=== PATIENT | female | born 1960 | race Caucasian/White ===

== ENCOUNTER 2018-06-28 07:27 | Emergency (ER) | payer OTHER ==
--- OUTSIDE RECORDS SUMMARY | 2018-06-28 07:33 | XMS REPORT | Continuity of Care Document ---
:1960 External Reference #:[id number] Author Name Fran Masterson MD Address [address] [place] [id number] Care Team Providers Name Role Phone Kush Masterson NP Care Team Information [employer] Unavailable Payers Type Date Identification Numbers Payment Provider Subscriber Effective: Policy Number: Lifetime Benefit Artemio Penaloza [place] 2013 [id number] SLNS Group Number: [id number] [address] [address] PayID: [place] [address] Expires: 2013 Policy Number: [id number] Ebs [employer] Artemio Penaloza [place] Group Number: [id number] [address] PayID: [place] [address] Advance Directives Description No Information Available Problems Date Description Provider Status Onset: 07/04/2004 Excessive and frequent menstruation Kristin Coates MD Active Onset: 08/01/2004 Adult health examination Kristin Coates MD Active Onset: 08/01/2004 Cyst of ovary Kristin Coates MD Active Onset: 08/01/2004 Atopic dermatitis Kristin Coates MD Active Onset: 10/22/2010 Pure hypercholesterolemia Kristin Coates MD Active Onset: 10/22/2010 Gynecologic examination Kristin Coates MD Active Onset: 05/08/2009 Prophylactic immunotherapy Kristin Coates MD Active Onset: 05/08/2009 Removal of suture Kristin Coates MD Active Family History Date Family Member(s) Problem(s) Comments Father due to Melanoma () Father Hypertension Mother due to Carcinoid Tumors () Mother Carcinoid Tumors; No H/O Ut/Cerv/Ov/ CA Mother Valve Replacement, Aortic Stenosis Siblings 2 Paternal Grandmother Diabetes, Adult Social History Type Date Description Comments Sex Unknown Education Higest level completed, Bachelor's Degree Marital Status Lives With Spouse Lives With Son Lives With Daughter Diet Healthy, Well Balanced Smoke-Free Smoke-Free Home Yes Pets 1 dog 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 Hand Dominance RIGHT-handed Hobbies Hobbies include Hiking, Skiing, Gardening, Geneology Tobacco Use Start: Unknown Never Smoked Cigarettes ETOH Use alcohol use: never used Exercise Type/Frequency Skiing, Active; Hockey Sun Exposure minimum amount of sun exposure Sun Exposure History of sunburns prior to age 19 Sun Exposure Has experienced blistering from sunburns Sun Exposure Uses 15-30 SPF Seat Belt/Car Seat always Allergies, Adverse Reactions, Alerts Description No Known Drug Allergies Medications Medication Date Status Form Strength Qnty SIG Indications Ordering Provider Guaiatussin ac 06/25 Active Syrup 100-10mg/ 118ml 5-10 5ML milliliters MD Fran every 4 hours as needed Shingrix 03/30 Active Suspension 50mcg 1unit as directed Rec s DELMER Lerner Simvastatin 02/06 Active Tablets 10mg 90tab 1 by mouth s every day DELMER Lerner No Active 03/24 Hx Unknown Medications /2016 - 02/06 Guaifenesin ac 05/03 Hx Syrup 100-10mg/ 120ml 1 teaspoon J02.9 5ML every 4 hours Kush, - as needed for ANTIQUE REFINISHER 03/24 Zostavax 03/18 Hx Solution [id number] 1vial 1 dose Rec 0.65ML intramuscular Kush, - ANTIQUE REFINISHER 05/03 Amoxicillin 11/16 Hx Tablets 875mg 20tab 1 by mouth J02.9 Christopher s twice a day Kush, - ANTIQUE REFINISHER 03/24 Out Of Work 11/16 Hx Misc today and J02.9 Aleja tomorrow MD Fran - 03/24 Tamiflu 08/01 Hx Capsules 75mg 10cap 1 by mouth Jaxon s once a day MD Kristin - until gone 05/03 Metronidazole 10/27 Hx Gel 0.75% 70gm 1 Vaginal applicatorful MD Kristin - intravaginall 05/03 y qhs x 5d Vitamin D 10/22 Hx Capsules 2000Unit 1 po qd MD Kristin - 03/24 24H Urine For 08/01 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 MD Kristin - tumors 10/22 Provera 07/04 Hx Tablets 10mg 10tab 1 po qd until 626.2 Jaxon s bleeding MD Kristin - stops 08/01 Immunizations CPT Code Status Date Vaccine Lot # [id number] Given 03/30/2018 Influenza Vac, Quadrivalent, Split, 0.5mL Dosage, [id number] Im Use 20499 Given 03/24/2017 Influenza Vac, Quadrivalent, Split, 0.5mL Dosage, [id number] Im Use 29354 Given 03/18/2016 Influenza Vac, Quadrivalent, Split, 0.5mL Dosage, [id number] Im Use 88083 Given 05/08/2009 Administration Swine Flu Vaccine [id number] Given 04/28/2009 Tdap (Adacel) Ages 7 And Above Only 48073 Given 05/04/2007 Afluria Or Fluvirin Flu Vac Intramuscular [id number] Vital Signs Date Vital Result Comment 06/25/2018 3:12pm Body Temperature 98.1 F Weight 231.00 lb Heart Rate 90 /min BP Systolic 128 mmHg BP Diastolic 70 mmHg Respiratory Rate 18 /min Height 63.25 inches 5'3.25" BMI (Body Mass Index) 40.6 kg/m2 03/30/2018 9:56am Body Temperature 97.5 F Weight 228.00 lb Heart Rate 86 /min BP Systolic 136 mmHg BP Diastolic 80 mmHg Respiratory Rate 17 /min Height 63 inches 5'3" BMI (Body Mass Index) 40.4 kg/m2 Urine Dipstick - Blood pos Urine Dipstick - Protein neg Urine Dipstick - Glucose neg Urine Dipstick - Leukocytes trace Left ear audiology results wnl Right ear audiology results neg 4000hz 03/24/2017 12:32pm Weight 228.00 lb Heart Rate 88 /min BP Systolic 128 mmHg BP Diastolic 80 mmHg Height 63.25 inches 5'3.25" BMI (Body Mass Index) 40.1 kg/m2 Urine Dipstick - Blood NEGATIVE Urine Dipstick - Protein NEGATIVE Urine Dipstick - Glucose NEGATIVE Urine Dipstick - Leukocytes NEGATIVE 05/03/2016 2:16pm Body Temperature 97.9 F Weight 223.50 lb BP Systolic 132 mmHg BP Diastolic 70 mmHg Height 63 inches 5'3" BMI (Body Mass Index) 39.6 kg/m2 03/18/2016 12:14pm Weight 221.00 lb BP Systolic 100 mmHg BP Diastolic 72 mmHg Height 63 inches 5'3" BMI (Body Mass Index) 39.1 kg/m2 11/16/2014 12:01pm Body Temperature 97.6 F Weight 218.00 lb BP Systolic 128 mmHg BP Diastolic 84 mmHg Height 63.75 inches 5'3.75" BMI (Body Mass Index) 37.7 kg/m2 10/22/2010 3:16pm Body Temperature 98.2 F Weight 203.00 lb Heart Rate 8 /min BP Systolic 132 mmHg BP Diastolic 80 mmHg Height 62.5 inches 5'2.50" BMI (Body Mass Index) 36.5 kg/m2 Urine Dipstick - Blood NEGATIVE Urine Dipstick - Protein NEGATIVE Urine Dipstick - Glucose NEGATIVE 08/01/2004 10:36am Body Temperature 96.1 F Weight 198.00 lb Heart Rate 85 /min BP Systolic 140 mmHg BP Diastolic 86 mmHg Height 64 inches 5'4" BMI (Body Mass Index) 34.0 kg/m2 Urine Dipstick - Blood NEGATIVE Urine Dipstick - Protein NEGATIVE Urine Dipstick - Glucose NEGATIVE 07/04/2004 11:04am Body Temperature 99.2 F Weight 202.00 lb Heart Rate 98 /min BP Systolic 134 mmHg BP Diastolic 98 mmHg BP Systolic Recheck 144 mmHg BP Diastolic Recheck 90 mmHg Height 64 inches 5'4" BMI (Body Mass Index) 34.7 kg/m2 Results Test Date Facility Test Result H/L Range Note Laboratory test finding 03/30/2018 [facility] TSH 1.05 uIU/mL 0.35-4.94 Urine Culture Microbiology res <SEE NOTE> 1 Laboratory test 03/28/2017 [facility] Hepatitis C < 0.1 0.0-0.9 2, 3 finding (315)- - Antibody s/corat CBC 03/28/2017 [facility] White Blood 8.1 K/uL N 3.1- 10.7 (315)- - Count Red Blood Count 5.21 M/uL N 3.90-5.40 Hemoglobin 17.2 gm/dL High 11.6-15.8 Hematocrit 51.3 % High 36.0-46.1 Mean Cell Volume 98.5 fl N 80.9-99.0 Mean Corpuscular HGB 33.0 pg High 25.9-32.7 Mean Corpuscular HGB Conc 33.5 g/dL N 30.8-34.3 Platelet Count 213 K/uL N 150-400 Red Cell Distri Width %CV 14.1 % N 11.7-14.4 Mean Platelet Volume 11.0 fL N 8.9-12.4 Comprehensive Metabolic 03/28/2017 [facility] Glucose 100 mg/dL N 74-106 Panel (315)- - BUN 14 mg/dL N 7-18 Creatinine 0.7 mg/dL N 0.6-1.3 Glom Filtration Rate, Estimate >60 mL/min >60 If >60 mL/min >60 4 BUN/Creat 20.0 ratio Sodium 142 mmol/L N 136-145 Potassium 4.4 mmol/L N 3.5-5.1 Chloride 108 mmol/L High 98-107 Carbon Dioxide 28 mmol/L N 21-32 Anion Gap 6 mEq/L Low 8-16 Calcium 8.5 mg/dL N 8.5-10.1 Total Protein 7.8 g/dL N 6.4-8.2 Albumin 3.6 g/dL N 3.4-5.0 Globulin 4.2 g/dL N 1.9-4.3 Alb/Glob 0.9 ratio Bilirubin,Total 0.4 mg/dL N 0.2-1.0 Sgot/Ast 13 U/L Low 15-37 5 SGPT/Alt 29 U/L N 12-78 Alkaline Phosphatase 74 U/L N 45-117 Laboratory test 03/28/2017 [facility] Thyroid Stim 1.64 uIU/mL N 0.30-4.20 finding (315)- - Hormone Lipid Panel 03/28/2017 [facility] Cholesterol 213 mg/dL High <200 6 (315)- - Triglycerides 147 mg/dL <150 7 HDL Cholesterol 53 mg/dL >40 8 LDL-Cholesterol 131 mg/dL < 100 9 Laboratory test 03/25/2017 [facility] 10 finding [phone] <SEE NOTE> Laboratory test 03/24/2017 [facility] Pap SEE NOTE 11 finding Laboratory test 05/03/2016 [facility] Throat Culture Microbiology res 12 , 13 finding <SEE NOTE> Laboratory test 03/18/2016 [facility] 14 finding [phone] <SEE NOTE> Laboratory test 03/18/2016 [facility] Pap SEE NOTE 15 finding Laboratory test 11/16/2014 [facility] Throat Culture Microbiology res 16 , 17 finding <SEE NOTE> Laboratory test 10/22/2010 [facility] Pap SEE NOTE 18, 19 finding HPV Negative Negative 20 Laboratory test 10/22/2010 [facility] 21 finding [phone] [facility] <SEE NOTE> LDL Cholesterol 09/19/2010 [facility] Cholesterol 213 mg/ dL High 120- Profile (315)- - 200 Triglycerides 106 mg/dL 0-210 HDL Cholesterol 52 mg/dL 32-96 LDL-Cholesterol 140 mg/dL 62-185 CBC 09/19/2010 [facility] White Blood Count 7.7 K/uL 3.1-10.7 (315)- - Red Blood Count 4.83 M/uL 3.90-5.40 Hemoglobin 15.2 gm/dL 11.6-15.8 Hematocrit 46.1 % 36.0-46.1 Mean Cell Volume 95.4 fl 80.9-99.0 Mean Corpuscular HGB 31.5 pg 25.9-32.7 Mean Corpuscular HGB Conc 33.0 g/dL 30.8-34.3 Platelet Count 193 K/uL 155-360 Red Cell Distri Width %CV 13.2 % 11.7-14.4 Mean Platelet Volume 11.0 fL 8.9-12.4 Laboratory test 09/19/2010 [facility] Vitamin 29.1 Low 32.0-100.0 22 finding (315)- - D,25-Hydroxy ng/mL Comprehensive 09/19/2010 [facility] Glucose 100 mg/dL 76-115 Metabolic Panel (315)- - BUN 16 mg/dL 5-23 Creatinine 0.8 mg/dL 0.5-1.4 Glom Filtration Rate, Estimate >60 mL/min >60 If >60 mL/min >60 23 BUN/Creat 20.0 Sodium 140 mEq/L 136-145 Potassium 4.8 mEq/L 3.5-5.1 Chloride 108 mEq/L High 98-107 Carbon Dioxide 29 mEq/L 21-32 Anion Gap 8 mEq/L 8-16 Calcium 9.1 mg/dL 8.5-10.1 Total Protein 7.6 g/dL 6.3-8.0 Albumin 3.9 g/dL 3.5-5.0 Globulin 3.7 gm/dL 1.9-4.3 Alb/Glob 1.1 Bilirubin,Total 0.3 mg/dL 0.2-1.2 Alkaline Phosphatase 82 U/L 50-136 Laboratory test finding 09/19/2010 [facility] Sgot/Ast 23 U/L 16-40 (315)- - SGPT/Alt 43 U/L 30-65 Thyroid Stim Hormone 1.19 uIU/mL 0.49-4.67 24 Xray 08/29/2004 [facility] Trans[facility] <pending> [phone] CBC 08/01/2004 [facility] (Do not Use) WBC 7.2 K/ul 4.1-10.9 [facility] [place] [address] [phone] RBC 4.62 M/ul 4.20-6.30 Hemoglobin 14.4 GM/dl 12.5-15.0 Hematocrit 44.1 % 37.0-51.0 MCV 95.5 FL 80.0-97.0 MCH 31.3 pg 26.0-32.0 MCHC 32.7 g/dL 31.0-36.0 RDW 12.7 % 11.5-14.5 Platelet Count 299 K/ul 140-440 Neutrophils 62.8 % 50-70 Lymphocytes 29.5 % 20-44 Monocytes 5.7 % 2-9 Eosinophil 1.0 % 0-4 Basophil 1.0 % 0-2 Absolute Neutrophils 4.5 K/ul 2.05-7.63 Absolute Lymphocytes 2.1 K/ul 0.8-4.8 Absolute Monocytes 0.4 K/ul 0.1-1.0 Absolute Eosinophils 0.1 K/ul 0.1-0.5 Absolute Basophils 0.1 K/ul 0.1-0.3 CMP 08/01/2004 [facility] (Do not Use) Sodium 137 mmol/L 135-145 [facility] [place] [address] [phone] Potassium 4.3 mmol/L 3.4-5.3 Chloride 105 mmol/L 98-111 Carbon Dioxide 26 mmol/L 22-33 Glucose 81 mg/dL 70-105 BUN 14 mg/dL 6-26 Creatinine 0.7 mg/dL 0.5-1.5 BUN/CR 20 Ratio 12.0-20.0 Calcium 8.8 mg/dL 8.6-10.3 Total Protein 7.5 g/dL 6.2-8.3 Albumin 4.2 g/dL 3.5-5.0 Globulin 3.3 g/dL 2.7-4.3 A/G Ratio 1.3 Ratio 1.0-2.2 Total Bilirubin 0.7 mg/dL 0.1-1.3 Ast 15 U/L 8-42 Alt 17 U/L 3-42 Alkaline Phosphatase 56 U/L 24-108 Anion Gap 10 mmol/L 10-20 Laboratory test 08/01/2004 [facility] (Do not Use) TSH 1.81 uIU/ml 0.50 -6.00 [place] [address] [phone] Lipid Panel 08/01/2004 [facility] (Do not Use) Cholesterol 210 mg/dL High 50-199 [place] [address] [phone] Triglycerides 161 mg/dL 30-200 HDL 39 mg/dL 35-85 Chol/HDL Ratio 5.4 Ratio VLDL 32 mg/dL LDL (Calc) 139 mg/dL High 20-129 1 Microbiology results SOURCE Clean Catch Midstream FINAL RESULT <10,000 CFU/ML Mixed urethral adrian consistent with contamination. No further workup. 2 Z00.00,E78.00,Z13.29 3 INFCE Result Units: s/co ratio Negative: < 0.8 Indeterminate: 0.8 - 0.9 Positive: > 0.9 The CDC recommends that a positive HCV antibody result be followed up with a HCV Nucleic Acid Amplification test (984879). Performed at: RN - [facility] [address] [id number] Change Of Address Clerk: Nida Green MD, Phone: [phone] Note: Persistent reduction for 3 months or more in an eGFR <60 mL/min/1.73 m2 defines CKD. Patients with eGFR values >/=60 mL/min/1.73 m2 may also have CKD if evidence of persistent proteinuria is present. The original MDRD equation for estimated GFR is not valid for patients less than 18 years of age. Additional information may be found at www.kdoqi.org. 5 Values below the stated reference ranges of AST and ALT can be seen in normal populations. Clinical correlation is suggested. 6 Reference Guidelines*: Desirable: ........... < 200 mg/dL Borderline High: ..... 200-239 mg/dL High: ................ >=240 mg/dL * The National Cholesterol Education Program (NCEP) 7 Reference Guidelines*: Normal: ............. < 150 mg/dL Borderline High: .... 150-199 mg/dL High: ............... 200-499 mg/dL Very High: .......... > 500 mg/dL * Source: National Cholesterol Education Program (NCEP) 8 Reference Guidelines*: Low HDL: ..... < 40 mg/dL Normal: ..... 40-60 mg/dL Desirable: ... > 60 mg/dL *The National Cholesterol Education Program(NCEP) 9 Reference Guidelines*: Optimal:........... <100 mg/dL Near Optimal....... 100-129 mg/dL Borderline High.... 130-159 mg/dL High............... 160-189 mg/dL Very High.......... >=190 mg/dL * Source: National Cholesterol Education Program (NCEP) [address] [place] [address] Amplified Molecular High Risk HPV Test Patient Name:KATHY GEE Patient :1960 Ordering Physician:KUSH MASTERSON [facility] Accession Number [id number] Specimen(s) Received A: High Risk HPV SP Cervical/Endocervical Pap Smear - One Vial Other Case Numbers: [id number] Diagnosis RISK GROUPS RESULTS High Risk NEGATIVE Tested for HPV Types (16, 18, 31, 33, 35, 39, 45, 51, 52, 56, 58, 59, 66, 68) Comments The performance characteristics of the SurePath residual specimen tested for this assay were validated by [employer] and licensed for use by the [facility]. This test has not been licensed by the FDA and the result is not intended to be used as the sole means for clinical diagnosis or patient management. Negative results do not rule out the presence of disease. Reported: 03/28/2017 16:04 Electronically Signed Out By Jossleyn Schumacher ckl 11 [employer] [facility]. [address] [place] [address] CYTOLOGY REPORT Source of Specimen(s): SurePath Cervical / Endocervical Pap Smear - One Vial Date of Last Menstrual Period: None Provided Other Clinical Conditions: HPV ASSAY REQUESTED Specimen Adequacy SATISFACTORY FOR EVALUATION PRESENCE OF ENDOCERVICAL/TRANSFORMATION ZONE COMPONENT General Categorization NEGATIVE FOR INTRAEPITHELIAL LESION OR MALIGNANCY Interpretation NEGATIVE FOR INTRAEPITHELIAL LESION OR MALIGNANCY Comment HPV testing will be performed and a separate report will be issued. Reported: 03/27/2017 11:43 Electronically Signed Out By Melissa LEE(ASCP) mayito ICD9 Code: Z00.00 Unless otherwise specified, testing performed by [place] [address] 12 This sample is drawn by:[place] 13 Microbiology results RESULT Normal throat adrian.No beta hemolytic streptococci isolated. 14 [place] [address] Amplified Molecular High Risk HPV Test Accession Number [id number] Specimen(s) Received A: High Risk HPV SP Cervical/Endocervical Pap Smear - One Vial Other Case Numbers: [id number] Diagnosis RISK GROUPS RESULTS High Risk NEGATIVE Tested for HPV Types (16, 18, 31, 33, 35, 39, 45, 51, 52, 56, 58, 59, 66, 68) Comments The performance characteristics of the SurePath residual specimen tested for this assay were validated by [employer] [facility] and licensed for use by the [facility] of [facility]. This test has not been licensed by the FDA and the result is not intended to be used as the sole means for clinical diagnosis or patient management. Negative results do not rule out the presence of disease. Reported: 03/20/2016 16:30 Electronically Signed Out By Ophelia Steel [place] [facility] 15 [employer] [facility]. [address] [place] [address] CYTOLOGY REPORT Source of Specimen(s): SurePath Cervical / Endocervical Pap Smear - One Vial Date of Last Menstrual Period: None Provided Other Clinical Conditions: HPV ASSAY REQUESTED Specimen Adequacy Satisfactory for evaluation Presence of endocervical/transformation zone component General Categorization Negative for intraepithelial lesion or malignancy Interpretation NEGATIVE FOR INTRAEPITHELIAL LESION OR MALIGNANCY Recommendations HPV testing will be performed and a separate report will be issued. Reported: 03/20/2016 08:22 Electronically Signed Out By Melissa Garcia [place]([facility]) [facility] ICD9 Code: Z01.419 Unless otherwise specified, testing performed by [employer] [place] [address] 16 Fastin hours 17 Microbiology results RESULT Normal throat adrian.No beta hemolytic streptococci isolated. 18 This sample is drawn by:JEFF, VIA DR. PICKERING. 19 [employer] [facility] [employer] [facility]. [address] [place] [address] GYNECOLOGIC CYTOLOGY REPORT Accession Number: [id number] Source of Specimen(s): A: SurePath Cervical / Endocervical Pap Smear - One Vial Clinical Diagnosis and History: Date of Last Menstrual Period: None Provided Menstrual History: Post-menopausal Other Clinical Conditions: Last Pap Smear: 08/04 normal DIGENE HPV ASSAY REQUESTED Specimen Adequacy Satisfactory for evaluation Presence of endocervical/transformation zone component General Categorization Negative for intraepithelial lesion or malignancy Interpretation NEGATIVE FOR INTRAEPITHELIAL LESION OR MALIGNANCY Acute inflammatory cells Recommendations HPV testing will be performed via Digene Hybrid Capture II and a separate report will be issued. Reported: 10/25/2010 Electronically Signed Out By Tita Kahn CT([facility]) [facility] w Unless otherwise specified, testing performed by [facility] [address] [place] [address] 20 Unless otherwise specified, testing performed by [facility]. [address] [place] [id number] [address] [address] [employer]ure II HPV Test Accession Number [id number] Specimen(s) Received A: Digene SP Cervical / Endocervical Pap Smear - One Vial Other Case Numbers: [id number] Diagnosis RISK GROUPS HPV TYPES RESULTS High Risk (16, 18, 31, 33, 35, 39, 45, 51, 52, 56, 58, 59, 68) NEGATIVE Comments The performance characteristics of the SurePath cell pellet specimen tested for this assay were validated by [employer] and licensed for use by the [facility]. This test has not been licensed by the FDA and the result is not intended to be used as the sole means for clinical diagnosis or patient management. Negative results do not rule out the presence of disease. Reported: 10/26/2010 16:20 Electronically Signed Out By Ophelia Steel [place] lic 22 Recent studies consider the lower limit of 32.0 ng/mL to be a threshold for optimal health. Hieu BERRY. J Nutr. 2004;135(2):317-22. Performed at: RN - [facility] [address] [id number] Change Of Address Clerk: Hayden Izaguirre MD, Phone: [phone] Note: Persistent reduction for 3 months or more in an eGFR <60 mL/min/1.73 m2 defines CKD. Patients with eGFR values >/=60 mL/min/1.73 m2 may also have CKD if evidence of persistent proteinuria is present. The original MDRD equation for estimated GFR is not valid for patients less than 18 years of age. Additional information may be found at www.kdoqi.org. 24 QUERY: @EMR Pat ID: [id number] QUERY: @EMR Req #: [id number] Procedures Date Code Description Status 05/18/2018 [id number] Mammogram Completed 05/02/2017 [id number] Mammogram Completed 03/24/2017 31222 Electrocardiogram Complete Completed 03/24/2017 70084 Screening Hearing Test Completed 09/06/2016 [id number] Colonoscopy Completed 09/05/2016 [id number] Colonoscopy Completed 04/19/2016 [id number] Mammogram Completed 01/02/2015 [id number] Mammogram Completed 04/23/2013 [id number] Mammogram Completed 10/22/2010 52075 Electrocardiogram Complete Completed 09/28/2010 [id number] Mammogram Completed 06/27/2008 52824 X-Ray Finger(S) Two Views Completed 06/30/2004 [id number] Mammogram Completed Encounters Type Date Location Provider Dx Diagnosis Office Visit 03/30/2018 Kush Chi NP N39.0 Urinary tract 9:30a infection, site not specified Z00.00 Encntr for general adult medical exam w/o abnormal findings Z23 Encounter for immunization E78.00 Pure hypercholesterolemia, unspecified Z68.41 Body mass index (BMI) 40.0-44.9, adult Office Visit 03/24/2017 12:00p Kush Chi NP Z00.00 Encntr for general adult medical exam w/o abnormal findings E78.00 Pure hypercholesterolemia, unspecified Z13.29 Encounter for screening for oth suspected endocrine disorder Z23 Encounter for immunization Z01.10 Encounter for exam of ears and hearing w/o abnormal findings Office Visit 05/03/2016 2:15p Kush Chi, J02.9 Acute pharyngitis, ANTIQUE REFINISHER unspecified Office Visit 03/18/2016 12:00p Kush Chi, Z01.419 Encntr for ob/gyn doctor exam ANTIQUE REFINISHER (general) (routine) w/o abn findings Z23 Encounter for immunization Office Visit 11/16/2014 11:45a Fran Chi MD V76.10 Screening For Malignant Neoplasm Breast 462 Pharyngitis Acute Office Visit 10/22/2010 3:00p Kristin De La Cruz MD V70.0 Exam (Adult ) General Medical Routine AT Health Care Facility V72.31 Routine 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 272.0 Hypercholesterolemia Pure Office Visit 05/08/2009 6:30p Kristin De La Cruz MD V58.32 Encounter For Removal Of Sutures V07.2 Prophylactic Immunotherapy V04.81 Need For Prophylactic Vaccination & Inoculation/Influenza Office Visit 08/01/2004 10:20a Kristin De La Cruz MD V70.0 Exam (Adult ) General Medical Routine AT Health Care Facility V72.3 Examination Gynecological V72.31 Routine 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 620.2 Ovarian Cyst Other & Unspec V76.41 Screening Malignant Neoplasm Rectum 691.8 Dermatitis Atopic & Related Conditions Other V77.91 Screening For Lipoid Disorders Office Visit 07/04/2004 10:40a Kristin De La Cruz MD 626.2 Menstruation Excessive Or Frequent Plan of Treatment 06/25/2018 - Fran Masterson MDJ06.9 Acute upper respiratory infection, unspecifiedComments:RECOMMEND INCREASED FLUID INTAKE & REST. TO CALL IF NOT IMPROVING IN FEW DAYS. SOONER FOR FEVERS, UNCONTROLLED VOMITING OR DIARRHEA OR FOR ANY SIGNS OF DEHYDRATION. TYLENOL OR IBUPROFEN NEEDED FOR FEVERS OR MUSCLE ACHES AND CAN TAKE TUSSIN-DM NEEDED FOR COUGH.Follow up:Followup: .Z68.41 Body mass index (BMI) 40.0-44.9, adultAllNew Medication:Guaiatussin ac 100-10 mg/5ML - 5-10 milliliters every 4 hours as needed
[2018-06-28 07:35] VITALS: BP 146/94
--- NOTE | 2018-06-28 07:58 | UC ---
Throat Pain/Nasal [place]erson HPI - HPI Summary HPI Summary: Cold and cough symptoms for about 6 days. No fever since day 2. OTC meds and robitussin AC have worked a little. Now there is more aung sinus pressure. - History of Current Complaint Chief Complaint: UCGeneralIllness Stated Complaint: COUGH Time Seen by Provider: 06/28/18 07:41 Hx Obtained From: Patient Onset/Duration: Gradual Onset, Lasting Days Severity: Moderate Pain Intensity: 0 Cough: Productive Associated Signs & Symptoms: Positive: Sinus Discomfort, Nasal Discharge - green. Negative: Fever, Vomiting, Rash - Allergies/Home Medications Allergies/Adverse Reactions: Allergies Allergy/AdvReac Type Severity Reaction Status Date / Time No Known Allergies Allergy Verified 06/28/18 07:35 Home Medications: Home Medications Simvastatin [Zocor] 20 mg PO DAILY 06/28/18 [History Confirmed 06/28/18] PMH/Surg Hx/FS Hx/Imm Hx Previously Healthy: No - No prior ENT surgery. - Surgical History Surgical History: None - Family History Known Family History: Positive: None - Social History Occupation: Employed Full-time Lives: With Family Alcohol Use: None Substance Use Type: None Smoking Status (MU): Former Smoker When Did the Patient Quit Smoking/Using Tobacco: 20 years ago Review of Systems All Other Systems Reviewed And Are Negative: Yes ENT: Positive: Sinus Congestion Respiratory: Positive: Cough Physical Exam Triage Information Reviewed: Yes Appearance: Well-Appearing, No Pain Distress, Obese Vital Signs: Initial Vital Signs Temp 97.9 F 06/28/18 07:33 Pulse 89 06/28/18 07:33 Resp 16 06/28/18 07:33 BP 146/94 06/28/18 07:33 Pulse Ox 96 06/28/18 07:33 Vital Signs Reviewed: Yes Eyes: Positive: Conjunctiva Clear. Negative: Conjunctiva Inflamed ENT: Positive: Nasal congestion, TM dull, Uvula midline. Negative: Nasal drainage, TMs normal - right tm obscured by wax., Tonsillar swelling, Tonsillar exudate, Trismus, Muffled voice, Hoarse voice, Sinus tenderness Neck: Positive: Supple, Nontender, No Lymphadenopathy Respiratory: Positive: Lungs clear, Normal breath sounds, No respiratory distress, No accessory muscle use. Negative: Respiratory distress, Decreased breath sounds, Accessory muscle use, Crackles, Rhonchi, Stridor Cardiovascular: Positive: RRR, No Murmur, Pulses Normal. Negative: Tachycardia , Bradycardia Abdomen Description: Negative: Distended, Guarding Musculoskeletal: Positive: Strength Intact, ROM Intact, No Edema Neurological: Positive: Alert, Muscle Tone Normal. Negative: Fatigued Psychological: Positive: Age Appropriate Behavior Skin: Negative: Rashes Throat Pain/Nasal Course/Dx - Differential Dx/Diagnosis Provider Diagnosis: URI (upper respiratory infection) Discharge - Sign-Out/Discharge Documenting (check all that apply): Patient Departure All imaging exams completed and their final reports reviewed: No Studies - Discharge Plan Condition: Good Disposition: HOME Prescriptions: Amoxicillin PO (*) [Amoxicillin 875 MG (*)] 875 mg PO BID #20 tab Benzonatate CAP* [Tessalon 100 MG CAP*] 100 mg PO TID PRN #[id number] cap PRN Reason: Cough Patient Education Materials: Upper Respiratory Infection (ED) Referrals: Fran Masterson MD [Primary Care Provider] - If Needed - Billing Disposition and Condition Condition: GOOD Disposition: Home
== END 2018-06-28 08:05 | disposition home or self-care (01) ==
LOC: UCCORT 07:27
DX: J06.9 Acute upper respiratory infection, unspecified (principal); Z87.891 Personal history of nicotine dependence
CPT/HCPCS: 99213; G0463